=== PATIENT | female | born 2005 | race Caucasian/White ===

== ENCOUNTER 2024-02-02 00:23 | Emergency (ER) | payer MEDICAID, SELFPAY ==
[2024-02-02 00:33] VITALS: BP 122/68; PULSE 88; RESP 18; TEMP 36.7; O2SAT 95; BMI 17.8
--- NOTE | 2024-02-02 00:47 | XR_ITS ---
Examination: Knee, right , 3 views Technique: Knee AP, lateral, oblique 3 views Date and time of exam: 0218 hrs. Indications: Injury to the knee today, knee pain Findings: No fracture or dislocation No foreign body Impression: No fracture or dislocation
[2024-02-02 02:16] LABS: HCG Qualitative,Urine Negative
--- NOTE | 2024-02-02 02:31 | EDNOTE_ITS ---
<Statement entered by Jennifer De Luna MD - 02/02/24 19:17> As co-signing physician, I was present and available for consult prn. I concur with the plan and care as documented by the midlevel provider. Lower Extremity Injury RME/HPI General Chief Complaint: Extremity Injury, Upper Stated Complaint: Hit knee on metal plate/wants it checked Time Seen by Provider: 02/02/24 00:47 Arrival date/time: 02/02/24 00:23 18F with no significant PMH presents to ED with R knee pain after she banged it against something. Patient also wants test prior to XR. Limitations: no limitations Related Data Previous Rx's ?Medication ?Instructions ?Recorded ibuprofen 400 mg tablet 400 mg PO Q8H PRN pain #14 tabs 12/27/23 Allergies Allergy/AdvReac Type Severity Reaction Status Date / Time No Known Allergies Allergy Verified 12/27/23 08:37 Review of Systems Review of Systems Systems Reviewed: All systems reviewed, normal except as documented Constitutional Constitutional: Reports system reviewed and no additional complaints, except as documented, Denies fever(s) and Denies headache(s) ENT Ears, Nose, Mouth, and Throat: Denies disequilibrium and Denies headache(s) Cardiovascular Cardiovascular: Reports system reviewed and no additional complaints, except as documented, Denies chest pain and Denies dyspnea Respiratory Respiratory: Reports system reviewed and no additional complaints, except as documented, Denies cough and Denies dyspnea Gastrointestinal Gastrointestinal: Reports system reviewed and no additional complaints, except as documented, Denies abdominal pain, Denies nausea and Denies vomiting Musculoskeletal Musculoskeletal: Reports as per HPI and Reports arthralgias Neurologic Neurologic: Reports system reviewed and no additional complaints, except as documented, Denies confusion, Denies disequilibrium and Denies headache(s) Psychiatric Psychiatric: Denies confusion Past Medical History Social History SMOKING STATUS: Former smoker ED Exam General Limitations: Present no limitations General appearance: Present alert and in no apparent distress Head Head exam: Present atraumatic Eye Eye exam: Present normal appearance, PERRL and EOMI ENT ENT exam: Present normal exam, normal oropharynx and mucous membranes moist Neck Neck exam: Present normal inspection, full ROM and trachea midline Chest Chest inspection: Present normal inspection and symmetric chest wall rise Respiratory Respiratory exam: Present normal lung sounds bilaterally Cardiovascular Cardiovascular exam: Present regular rate, normal rhythm and normal heart sounds Abdominal Exam Abdominal exam: Present soft and normal bowel sounds Extremities Exam Extremities exam: Present full ROM Expanded Lower Extremity Exam Knee exam: Present full ROM (R) and tenderness Back Exam Back exam: Present normal inspection and full ROM Neurological Exam Neurological exam: Present alert, oriented X3 and CN II-XII intact Psychiatric Psychiatric exam: Present normal affect and normal mood Skin Skin exam: Present warm, dry, intact and normal color Course Quality Measures none Orders Category Date Time Status XR knee RT 3V Stat Exams 02/02/24 00:47 Taken HCG Qualitative,Urine Stat Lab 02/02/24 01:08 Completed Vital Signs Vital signs: Vital Signs Temperature 98.0 F 02/02/24 00:33 Pulse Rate 88 02/02/24 00:33 Respiratory Rate 18 02/02/24 00:33 Blood Pressure 122/68 02/02/24 00:33 Pulse Oximetry (%) 95 02/02/24 00:33 Oxygen Delivery Method Room Air 02/02/24 00:33 O2 at 95% on RA and WNLs Extremity Injury, Lower MDM Narrative MDM Narrative:: 18F with no significant PMH presents to ED with R knee pain after she banged it against something. Patient also wants test prior to XR. Physical exam reveals R knee tendernes, but normal ROM. Gait intact. Patient is afebrile, calm, and alert. XR no fx. Viscera Washer given. Patient data External records reviewed:: [facility] previous records Clinical information provided by:: patient Social determinants that could affect healthcare access:: none Patient has the following chronic illnesses:: none How is presenting disease/condition affected by chronic disease/condition?: no chronic disease Evaluation data The following diagnostics were reviewed and interpreted by me:: radiology exam(s) Lab and/or radiology exams considered but not ordered:: ordered Interpretation Summary: above Medications / Prescriptions Medications or Prescriptions considered but not ordered:: not ordered Medication administrations:: n/a Consultations Consultation(s) initiated? (list below): No Diagnosis Extremity Injury, Lower Differential Diagnosis: ankle sprain and strain, acute internal derangement of knee, puncture wound of foot, fracture of toe, ankle fracture and other (knee fx/contusion) Most likely diagnosis given after review of the tests above:: knee contusion Admission Indicated Admission indicated?: not indicated Admission Request Was there a request for admission?: No Disposition Plan Disposition Plan: Discharge Discharge Attestation Discharge Attestation: The patient and all family members were given an opportunity to ask questions and understood the discharge instructions. Discharge instructions specifically effects, indications for sooner follow up or return to the emergency department, and the expected course of current diagnosis. Patient condition: Stable Discharge Plan Plan Patient Disposition: HOME (Self Care) Disposition Comment: Stable Prescriptions/Referrals Prescriptions/Med Rec: No Action ibuprofen 400 mg tablet 400 mg PO Q8H PRN (Reason: pain) Qty: 14 0RF Problem List Clinical Impression: Contusion of knee Patient/Caregiver Discharge Instructions Education Materials: ED Contusion, Lower Extremity Additional Instructions: Please follow-up with PCP within 24-48 hours and return immediately if symptoms worsen. If problem persists, recommend outpatient PT and/or MRI follow-up. In the meantime, rest, use ice/heat, and/or compression. Print Language: Wolof Stand Alone Forms: Patient Portal Info Letter PATRICIA/BREANN Supervising Physician PATRICIA/BREANN Supervising Physician: Dr. De Luna
--- NOTE | 2024-02-02 03:10 | PRELIM_ITS ---
Radiographs of the right knee joint (3 views). February 02, 2024 0218 hours Clinical History: Hit ward e Comparison: No prior study is available for comparison. Findings:There is no evidence of fracture o r dislocation. The tibiofemoral and patellofemoral knee joints are normal in configuration and align ment. The visualized bones demonstrate normal density. The periarticular soft tissues are normal.Impr ession:No evidence of fracture or dislocation. Report Electronically Signed By: Keven Tilley 02/02/20 24 3:09:29 AM [EST]
[2024-02-02 03:14] VITALS: RESP 18
== END 2024-02-02 03:14 | disposition home or self-care (01) ==
LOC: SERX 03:37
PROVIDERS: Physician Assistant; Emergency Provider Emergency Medicine
DX: S80.01XA Contusion of right knee, initial encounter (principal); W22.8XXA Striking against or struck by other objects, initial encounter
CPT/HCPCS: 73562; 81025; 99283

== ENCOUNTER 2024-02-05 12:27 | Emergency (ER) | payer MEDICAID, SELFPAY ==
[2024-02-05 12:38] VITALS: BP 131/71; PULSE 109; RESP 23; TEMP 36.5; O2SAT 96
--- NOTE | 2024-02-05 12:40 | EKG_ITS ---
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
--- NOTE | 2024-02-05 12:40 | XR_ITS ---
Examination: PA chest single view TECHNIQUE: Upright PA chest single view Exam date and time: February 05, 2024 1315 hours INDICATIONS: Shortness breath chest pain today, history heart surgery FINDINGS: Mild enlargement left ventricle Median sternotomy wires Mild vascular congestion. No pneumonia or pulmonary edema IMPRESSION: Mild vascular congestion
--- NOTE | 2024-02-05 12:41 | PD.EDADULT ---
ED General RME/HPI General Chief complaint: Shortness of Breath/Dyspnea Stated complaint: SOB, CP, DIZZINES, HX OF HEART PROBLEMS Time Seen by Provider: 02/05/24 12:40 Arrival date/time: 02/05/24 12:27 CC: Chest pain shortness of breath HPI ongoing for the past 24 hours after smoking weed , and I think something else was in it . 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 When directed and a focused conversation the patient's shortness of breath ceases and she speaks in full sentences with a normal respiratory rate however the minute the conversation stops she becomes tachypneic, patient has remained tachycardic throughout the interview. Related Data Previous Rx's ?Medication ?Instructions ?Recorded ibuprofen 400 mg tablet 400 mg PO Q8H PRN pain #14 tabs 12/27/23 Allergies Allergy/AdvReac Type Severity Reaction Status Date / Time latex Allergy Verified 02/05/24 12:31 Review of Systems Review of Systems Narrative Review of Systems: GEN: No fever, no chills, no weight loss EYES: No discharge, no visual changes, no pain HEENT: No ear pain, no congestion, no sore throat PULM: + shortness of breath, no cough, no congestion CV: + chest pain, no dyspnea on exertion, no palpitations GI: No nausea, no vomiting, no diarrhea, no pain, no constipation : No frequency, no urgency, no dysuria MUSC/SKEL: No joint pain, no back pain SKIN: No rash PSYCH: No hallucinations, no depression HEME/LYMPH: No easy bleeding or bruising tendencies NEURO: No weakness, no headache Past Medical History Social History SMOKING STATUS: Former smoker ED Exam Narrative Physical exam: [General: Thin but not emaciated, anxious but not in any acute distress Head normocephalic HEENT: Within acceptable limits Neck is supple nontender Chest equal chest rise nontender to palpation Respiratory: Clear to auscultation no wheezes crackles or rubs CV: Rate rhythm is regular, tachycardic, no murmurs rubs or clicks Abdomen is soft nontender no masses positive bowel sounds all 4 quadrants Back: No CVA tenderness no spinous process tenderness from cervical spine thoracic and lumbar spine Skin: Intact no petechiae rash induration ulceration or crepitus Extremities: Moving all extremity against resistance cap refill less than 2 seconds neurosensory intact Neuro: Awake alert oriented x3 Glascow coma 15 no focal deficits] Course Quality Measures none Orders Category Date Time Status EKG (ED ONLY) *Do not use* NOW Care 02/05/24 12:41 Completed EKG (ED Only) Stat Exams 02/05/24 12:40 Draft XR chest 1V Stat Exams 02/05/24 12:40 Completed Drug Screen,Urine Stat Lab 02/05/24 13:57 Completed HCG Qualitative,Urine Stat Lab 02/05/24 13:57 Completed Troponin I Stat Lab 02/05/24 13:06 Completed Urinalysis Stat Lab 02/05/24 13:57 Completed Vital Signs Vital signs: Vital Signs Temperature 97.7 F 02/05/24 12:38 Pulse Rate 109 H 02/05/24 12:38 Respiratory Rate 23 H 02/05/24 12:38 Blood Pressure 131/71 H 02/05/24 12:38 Pulse Oximetry (%) 96 02/05/24 12:38 Oxygen Delivery Method Room Air 02/05/24 12:38 [facility] Patient data External records reviewed:: [facility] previous records Clinical information provided by:: patient Social determinants that could affect healthcare access:: none Patient has the following chronic illnesses:: Cardiac hyperplasia How is presenting disease/condition affected by chronic disease/condition?: uneffected by Evaluation data The following diagnostics were reviewed and interpreted by me:: lab results, radiology exam(s) and EKG tracing(s) Lab and/or radiology exams considered but not ordered:: EKG performed at 1256 shows a ventricular rate of 107 LA interval 124 QRS of 9 7 QTc of 420 sinus tachycardia right ventricular hypertrophy nonspecific ST segment changes. Troponin is negative Chest x-ray entered by me read by radiology as negative Urine is positive for methamphetamines and THC. Interpretation Summary: Is most likely tachycardia driven by anxiety and methamphetamines Medications Medications considered but not ordered:: None Medication administrations:: None Consultations Consultation(s) initiated? (list below): No Diagnosis Differential Diagnosis ED Complaint MDM: Methamphetamine abuse pneumonia Most likely diagnosis given after review of the tests above:: Anxiety and methamphetamine use tachycardia Admission Indicated Admission indicated?: not indicated Explain why admission is indicated or not indicated:: Stable for outpatient follow-up Admission Request Was there a request for admission?: No Disposition Plan Disposition Plan: Discharge Discharge Attestation Discharge Attestation: The patient and all family members were given an opportunity to ask questions and understood the discharge instructions. Discharge instructions specifically effects, indications for sooner follow up or return to the emergency department, and the expected course of current diagnosis. Patient condition: Stable Medical Decision Making Differential Diagnosis Differential Diagnosis: Methamphetamine abuse pneumonia Lab Data Labs: Lab Results 02/05/24 02/05/24 Range/Units 13:06 13:57 Troponin I < 0.020 (0.0-0.045) ng/mL Ur Collection Type Clean Catch Urine Color Yellow (Lt Yel-Yel) Urine Clarity Turbid A (Clear/Hazy) Urine pH 6.0 (5.0-7.0) Ur Specific [place] 1.032 (1.001-1.035) Urine Protein 1+ A (Neg - Trace) Urine Glucose (UA) Negative (Negative) Urine Ketones Negative (Negative) Urine Blood Trace (Negative) Urine Nitrite Negative (Negative) Urine Bilirubin Negative (Negative) Urine Urobilinogen (Auto) 3.0 (0.0-1.0) mg/dL Ur Leukocyte Esterase Positive (Negative) Urine RBC 5 H (0-3) /hpf Urine WBC 19 H (0-5) /hpf Ur Squamous Epith Cells 98 H (0-5) /hpf Ur Transition Epith Cell 1 (0-5) /hpf Urine Bacteria Rare (None) Urine HCG, Qual Negative Urine Opiates Screen Negative (Negative) Urine Fentanyl Screen Negative (Negative) Ur Barbiturates Screen Negative (Negative) U Amphetamin/Meth Scrn Positive A (Negative) U Benzodiazepines Scrn Negative (Negative) U Cocaine Metab Screen Negative (Negative) U Marijuana (THC) Screen Positive A (Negative) Discharge Plan Plan Patient Disposition: HOME (Self Care) Patient condition on transfer: Stable Prescriptions/Referrals Prescriptions/Med Rec: No Action ibuprofen 400 mg tablet 400 mg PO Q8H PRN (Reason: pain) Qty: 14 0RF Referrals: No Primary/Family,Physician [Primary Care Provider] - In 1 week Lan Park MD [Physician] - In 1 week Problem List Clinical Impression: Anxiety, Methamphetamine abuse, Chest pain Patient/Caregiver Discharge Instructions Other Activity Instructions:: Stop using methamphetamines follow-up with a primary care provider Education Materials: ED Drug Abuse, ED Chest Pain, Uncertain Cause Print Language: Kinyarwanda Stand Alone Forms: [employer] Award Info., Patient Portal Info Letter, Work/School Release PA/LAUNDRY LABORER Supervising Physician PA/LAUNDRY LABORER Supervising Physician: Gildardo Molina ENP
[2024-02-05 13:34] LABS: Troponin I < 0.020 ng/mL (0.0-0.045)
[2024-02-05 14:16] LABS: Collection Type, Urine Clean Catch
[2024-02-05 14:39] LABS: HCG Qualitative,Urine Negative
[2024-02-05 14:44] LABS: Bacteria,Urine Rare; Bilirubin,Urine Negative (Negative); Blood,Urine Trace (Negative); Clarity,Urine Turbid (Clear/Hazy); Color,Urine Yellow (Lt Yel-Yel); Glucose, Urine Negative (Negative); Ketones,Urine Negative (Negative); Leukocyte Esterase,Urine Positive (Negative); Nitrite,Urine Negative (Negative); Protein,Urine 1+ (Neg - Trace); RBC,Urine 5 /hpf (0-3); Specific Gravity,Urine 1.032 (1.001-1.035); Squamous Epithelial Cell,Urine 98 /hpf (0-5); Transitional Epi Cells,Urine 1 /hpf (0-5); WBC,Urine 19 /hpf (0-5)
[2024-02-05 14:54] LABS: Amphetamine/Methamp Scrn,U Positive (Negative); Barbiturate Screen,Urine Negative (Negative); Benzodiazepines Screen,Urine Negative (Negative); Benzoylecgonine Screen, Ur Negative (Negative); Fentanyl Screen,Urine Negative (Negative); Opiate Screen,Urine Negative (Negative); THC Screen,Urine Positive (Negative)
== END 2024-02-05 15:21 | disposition home or self-care (01) ==
PROVIDERS: Registered Nurse General Practice; Emergency Provider Emergency Medicine
DX: F41.9 Anxiety disorder, unspecified (principal); F15.10 Other stimulant abuse, uncomplicated; R07.9 Chest pain, unspecified; R00.0 Tachycardia, unspecified
CPT/HCPCS: 36415; 71045; 80307; 81001; 81025; 84484; 93005; 99283

== ENCOUNTER 2024-02-16 17:23 | Emergency (ER) | payer MEDICAID, SELFPAY ==
[2024-02-16 17:58] VITALS: BP 125/74; PULSE 80; RESP 17; TEMP 36.7; O2SAT 97
--- NOTE | 2024-02-16 18:17 | XR_ITS ---
Examination: Hand, left 3 views Technique: Hand AP, oblique, lateral 3 views Date and time of exam: February 16, 2024 1826 hrs. Indications: Punching injury to the hand today with hand pain Findings: No acute fracture No dislocation No foreign body Impression: No acute fracture
--- NOTE | 2024-02-16 18:40 | EDNOTE_ITS ---
Upper Extremity Injury RME/HPI General Chief Complaint: Hand/Wrist Problems Stated Complaint: L HAND INJURY Time Seen by Provider: 02/16/24 18:16 Arrival date/time: 02/16/24 17:23 18F with history of psych/drug use presents to ED with L hand pain after she punched a tree. Limitations: no limitations Related Data Previous Rx's ?Medication ?Instructions ?Recorded ibuprofen 400 mg tablet 400 mg PO Q8H PRN pain #14 tabs 12/27/23 Allergies Allergy/AdvReac Type Severity Reaction Status Date / Time latex Allergy Verified 02/16/24 17:26 Review of Systems Review of Systems Systems Reviewed: All systems reviewed, normal except as documented Constitutional Constitutional: Reports system reviewed and no additional complaints, except as documented, Denies fever(s) and Denies headache(s) ENT Ears, Nose, Mouth, and Throat: Denies disequilibrium and Denies headache(s) Cardiovascular Cardiovascular: Reports system reviewed and no additional complaints, except as documented, Denies chest pain and Denies dyspnea Respiratory Respiratory: Reports system reviewed and no additional complaints, except as documented, Denies cough and Denies dyspnea Gastrointestinal Gastrointestinal: Reports system reviewed and no additional complaints, except as documented, Denies abdominal pain, Denies nausea and Denies vomiting Musculoskeletal Musculoskeletal: Reports as per HPI and Reports arthralgias Neurologic Neurologic: Reports system reviewed and no additional complaints, except as documented, Denies confusion, Denies disequilibrium and Denies headache(s) Psychiatric Psychiatric: Denies confusion Past Medical History Social History SMOKING STATUS: Current some day smoker ED Exam General Limitations: Present no limitations General appearance: Present alert and in no apparent distress Head Head exam: Present atraumatic Eye Eye exam: Present normal appearance, PERRL and EOMI ENT ENT exam: Present normal exam, normal oropharynx and mucous membranes moist Neck Neck exam: Present normal inspection, full ROM and trachea midline Chest Chest inspection: Present normal inspection and symmetric chest wall rise Respiratory Respiratory exam: Present normal lung sounds bilaterally Cardiovascular Cardiovascular exam: Present regular rate, normal rhythm and normal heart sounds Abdominal Exam Abdominal exam: Present soft and normal bowel sounds Extremities Exam Extremities exam: Present full ROM Expanded Upper Extremity Exam Hand exam: Present full ROM (L), tenderness, swelling and ecchymosis Back Exam Back exam: Present normal inspection and full ROM Neurological Exam Neurological exam: Present alert, oriented X3 and CN II-XII intact Psychiatric Psychiatric exam: Present normal affect and normal mood Skin Skin exam: Present warm, dry, intact and normal color Course Quality Measures none Orders Category Date Time Status yany wrap [Splint / Immobilizer] STAT Care 02/16/24 19:34 Active XR hand comp LT min 3V Stat Exams 02/16/24 18:17 Completed Vital Signs Vital signs: Vital Signs Temperature 98.0 F 02/16/24 17:58 Pulse Rate 80 02/16/24 17:58 Respiratory Rate 17 02/16/24 17:58 Blood Pressure 125/74 02/16/24 17:58 Pulse Oximetry (%) 97 02/16/24 17:58 Oxygen Delivery Method Room Air 02/16/24 17:58 O2 at 97% on RA and WNLs Extremity Injury MDM Narrative MDM Narrative:: 18F with history of psych/drug use presents to ED with L hand pain after she punched a tree. Physical exam reveals L hand tenderness, swelling, and bruising, but normal ROM. Cap refill normal. Patient is afebrile, calm, and alert. XR no fx. Given YANY and drug abuse counselor. Patient data External records reviewed:: [facility] previous records Clinical information provided by:: patient Social determinants that could affect healthcare access:: mental health Patient has the following chronic illnesses:: psych/drug How is presenting disease/condition affected by chronic disease/condition?: exacerbated by Evaluation data The following diagnostics were reviewed and interpreted by me:: radiology exam(s) Lab and/or radiology exams considered but not ordered:: ordered Interpretation Summary: above Medications / Prescriptions Medications or Prescriptions considered but not ordered:: not ordered Medication administrations:: n/a Consultations Consultation(s) initiated? (list below): No Diagnosis Upper Extremity Injury Differential Diagnosis: sprain and strain of wrist, fracture of wrist, finger sprain, dislocation of finger, Colles' fracture, fracture of hand, dislocation of shoulder, fracture of humerus, fracture of clavicle and other (hand contusion) Most likely diagnosis given after review of the tests above:: hand contusion Admission Indicated Admission indicated?: not indicated Admission Request Was there a request for admission?: No Disposition Plan Disposition Plan: Discharge Discharge Attestation Discharge Attestation: The patient and all family members were given an opportunity to ask questions and understood the discharge instructions. Discharge instructions specifically effects, indications for sooner follow up or return to the emergency department, and the expected course of current diagnosis. Patient condition: Stable Discharge Plan Plan Patient Disposition: HOME (Self Care) Disposition Comment: Stable Prescriptions/Referrals Prescriptions/Med Rec: No Action ibuprofen 400 mg tablet 400 mg PO Q8H PRN (Reason: pain) Qty: 14 0RF Referrals: No Primary/Family,Physician [Primary Care Provider] - In 1 week Problem List Clinical Impression: Contusion of hand Patient/Caregiver Discharge Instructions Education Materials: ED Hand Contusion Additional Instructions: Please follow-up with PCP within 24-48 hours and return immediately if symptoms worsen. If problem persists, recommend outpatient PT and/or MRI follow-up. In the meantime, rest, use ice/heat, and/or compression. Print Language: Irish Stand Alone Forms: Patient Portal Info Letter PATRICIA/BREANN Supervising Physician PATRICIA/BREANN Supervising Physician: Dr. Hendrix
[2024-02-16 19:38] VITALS: RESP 18
== END 2024-02-16 19:39 | disposition home or self-care (01) ==
PROVIDERS: Emergency Provider Emergency Medicine
DX: S60.222A Contusion of left hand, initial encounter (principal); W22.09XA Striking against other stationary object, initial encounter
CPT/HCPCS: 73130; 99283

== ENCOUNTER 2024-03-16 03:53 | Emergency (ER) | payer SELFPAY ==
[2024-03-16 03:55] VITALS: BP 120/74; PULSE 87; RESP 17; TEMP 36.6; O2SAT 97
[2024-03-16 04:06] VITALS: BMI 17.2
[2024-03-16 04:07] VITALS: PULSE 92; RESP 16; O2SAT 98
--- NOTE | 2024-03-16 04:21 | EKG_ITS ---
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: : 2005 Requested By: ED Temporary Provider Order Number: [id number] Reading MD: ED Temporary Provider Measurements Intervals [place] Rate: 78 P: [place]: QRS: 100 QRSD: 104 T: -2 QT: 412 QTc: 470 Interpretive Statements SUPRAVENTRICULAR RHYTHM POSSIBLE RIGHT VENTRICULAR HYPERTROPHY [SOME/ALL OF: PROMINENT R IN V1, LATE TRANSITION, RAD, CONRAD, SSS] NONSPECIFIC ST & T-WAVE ABNORMALITY Compared to ECG 02/05/2024 12:56:29 Supraventricular rhythm now present Sinus tachycardia no longer present Possible ischemia no longer present T-wave abnormality still present /store/S0/[id number]
--- NOTE | 2024-03-16 04:32 | EDRME_ITS ---
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 Patient is also asking for a test.
--- NOTE | 2024-03-16 04:35 | XR_ITS ---
Examination: AP chest single view Technique one AP portable upright chest single view Exam date and time: March 16, 2024 at 0447 hours INDICATIONS: Onset chest pain today FINDINGS: Mild prominence left ventricle Median sternotomy wires No pneumonia or pulmonary edema. IMPRESSION: No pneumonia or pulmonary edema
[2024-03-16 05:56] LABS: Basophils % (Auto) 0 % (0-2.5); Eosinophils # (Auto) 0.1 Thou/mm3 (0.0-0.5); Eosinophils % (Auto) 1 % (0-10); Hematocrit 41.3 % (36.0-46.0); Hemoglobin 13.8 g/dL (12.0-16.0); Immature Granulocytes % (Auto) 0 % (0-0); Immature Granulocytes Auto 0.02 Thou/mm3 (0.00-0.00); Lymphocytes # (Auto) 1.5 Thou/mm3 (1.0-5.0); Lymphocytes % (Auto) 22 % (10-50); Mean Corpuscular HGB Conc 33.4 g/dl (31.0-37.0); Mean Corpuscular Hemoglobin 30.4 pg (25.0-35.0); Mean Corpuscular Volume 91 fL (80-100); Monocytes # (Auto) 0.7 Thou/mm3 (0.0-0.8); Monocytes % (Auto) 10 % (0-12); Neutrophils # (Auto) 4.4 Thou/mm3 (1.8-7.7); Neutrophils % (Auto) 66 % (37-80); Nucleated Red Blood Cell % 0 /100 WBC (0); Platelet Count 187 Thou/mm3 (140-440); RDW Standard Deviation 43.8 fL (36.4-46.3); Red Blood Count 4.54 Miln/mm3 (4.00-5.20); White Blood Count 6.7 Thou/mm3 (4.5-11.0)
[2024-03-16 05:57] LABS: HCG Qualitative,Urine Negative
[2024-03-16 06:30] VITALS: BP 121/68; PULSE 80; RESP 17; TEMP 36.6; O2SAT 97
[2024-03-16 06:36] LABS: Alanine Aminotransferase 19 U/L (10-49); Albumin, Serum 5.3 gm/dL (3.5-5.0); Albumin/Globulin Ratio 1.9 (1.2-2.2); Alkaline Phosphatase 74 U/L (46-116); Anion Gap 8 (7-16); Aspartate Amino Transferase 23 U/L (0-34); BUN/Creatinine Ratio 21 Ratio (12-20); Blood Urea Nitrogen 17 mg/dL (9-23); Chloride 105 mMol/L (98-107); Creatinine (Component) 0.8 mg/dL (0.6-1.3); Globulin 2.8 gm/dL (2.3-3.5); Glucose 82 mg/dL (74-106); Osmolality,Calculated 278 (275-295); Potassium 3.4 mMol/L (3.4-5.1); Sodium 139 mMol/L (136-145); Total Protein 8.1 gm/dL (5.7-8.2); Troponin I < 0.020 ng/mL (0.0-0.045); eGFR > 60 See Note
--- NOTE | 2024-03-16 07:15 | EDNOTE_ITS ---
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 Patient is also asking for a test. At the previous history is placed by the initial RME note. 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 She is currently searching for a retail cosmetics sales beauty advisor. Today she has no shortness of breath she complains of a tender chest wall when you push on it and recalls bumping her chest on the sink several days ago which may be the cause of her soreness. She is concerned about being possibly she does not have any nausea vomiting. She has no shortness of breath. She has no fever cough runny nose or blood in the stool. She had no other complaints Related Data Previous Rx's ?Medication ?Instructions ?Recorded ibuprofen 400 mg tablet 400 mg PO Q8H PRN pain #14 tabs 12/27/23 Allergies Allergy/AdvReac Type Severity Reaction Status Date / Time latex Allergy Verified 02/16/24 17:26 Review of Systems Review of Systems Narrative Review of Systems: Review of Systems: Constitutional: DENIES: Fevers,; Eyes: DENIES: Loss of vision, Head/Ear/Nose: DENIES: Loss of hearing. Throat: Denies dysphagia. Cardiovascular: See HPI. Respiratory: DENIES: Shortness of breath, Gastrointestinal: DENIES: Rectal bleeding or melena. Genitourinary: DENIES: Dysuria (painful or difficult urination),; Musculoskeletal: DENIES: Arthralgia (pain in a joint),; Skin: DENIES: Rash,; Neurological: DENIES: loss of function or movement,; Psychiatric: DENIES: recent major life stressor, emotional problem, illicit drug use or abuse,; Endocrinology: DENIES: Weight change,; Hematologic/Lymphatic: DENIES: Abnormal bruising. Allergic/Immunologic: DENIES: Urticaria (hives), ED Exam Narrative Physical exam: Physical Exam: General: The vital signs were reviewed. The patient is non-toxic, in no apparent distress and appears healthy with a patent airway, no respiratory distress and has no apparent circulatory problems. Head & Scalp: Normocephalic, atraumatic. Face: Appears normal and is without lesions, deformity. Ears: Left external pinna appears normal. Right external pinna appears normal. Eyes: The sclera is anicteric. No obvious photophobia. The Left and Right Orbit/Lid/Conjunctiva appears normal without swelling, discoloration or injection. Nose: The nose is without deformity, discharge or tenderness; Throat: Appears normal. The mucous membranes are pink and moist without exudates, redness or mass seen. The tongue appears normal. Neck: The neck is supple and no apparent mass or adenopathy. Chest: Old well-healed sternal scars, very tender anterior chest wall Left sternal at about T3 area is very focal. The adjacent right parasternal area is nontender. There is no ecchymosis seen. Palpating the 1 spot does reproduce the pain that brought her here. The chest wall is normal in size and symmetry and has no chest wall tenderness or crepitus. The patient displays normal ventilator effort without retractions, accessory muscle use and has adequate air movement bilaterally with no wheezes and no rales. Cardiovascular: Regular rate and rhythm; No murmurs, rubs, or gallops; Gastrointestinal: The abdomen appears normal. No obvious hernias or mass. The abdomen is soft and benign, non-distended, with no pain, no guarding and no rebound tenderness. Bowel sounds are present and normal sounding. No CVA tenderness. Genitourinary: Back/Spine: Nontender Extremities/Musculoskeletal/lymphatic: The bilateral upper and lower extremities are warm. There is no evidence of arterial insufficiency. There is no evidence of venous insufficiency/edema. The patient spontaneously moves bilateral upper and lower extremities with no pain and no limitation of movement. There is no apparent, injury or trauma. Skin: The skin is warm, dry and intact. No rashes. No petechia. No purpura. No abnormal bruising. The color is appropriate with no cyanosis. Mental status/Psychiatric: Mental status is appropriate for age. The patient has no apparent delusions, visual hallucinations, no apparent audible hallucinations. The patient has no apparent suicidal thoughts/ideation and no apparent homicidal thoughts/ideation. Neurological: The patient is awake, alert, interactive, cordial, cooperative and is oriented to name and situation. The patient follows commands and answers historical question with no impairment. There is no visual disturbance apparent. The pupils are equal and reactive bilaterally with normal eye movements and no diplopia The bilateral upper and lower extremities have normal strength, normal range of motion and normal functioning. The gait, station and balance appear to be baseline with no acute change Course Quality Measures none Orders Category Date Time Status EKG (ED ONLY) *Do not use* NOW Care 03/16/24 04:21 Completed IV [Insert IV] STAT Care 03/16/24 04:35 Active CXRP [XR chest 1V portable] Stat Exams 03/16/24 04:35 Taken EKG (ED Only) Stat Exams 03/16/24 04:21 Draft CBC Stat Lab 03/16/24 05:24 Completed CMP [Comprehensive Metabolic Panel] Stat Lab 03/16/24 05:24 Completed HCG Qualitative,Urine Stat Lab 03/16/24 05:04 Completed Troponin I Stat Lab 03/16/24 05:24 Completed Vital Signs Vital signs: Vital Signs Temperature 97.9 F 03/16/24 03:55 Pulse Rate 87 03/16/24 03:55 Respiratory Rate 17 03/16/24 03:55 Blood Pressure 120/74 03/16/24 03:55 Pulse Oximetry (%) 97 03/16/24 03:55 Oxygen Delivery Method Room Air 03/16/24 03:55 Chest Pain Patient data External records reviewed:: None Clinical information provided by:: patient Social determinants that could affect healthcare access:: substance use (Marijuana no recent meth though) Patient has the following chronic illnesses:: Hypoplastic How is presenting disease/condition affected by chronic disease/condition?: uneffected by Evaluation data The following diagnostics were reviewed and interpreted by me:: lab results (Lab results showed normal CBC and CHEM panel.), radiology exam(s) (Chest x-ray read by myself reveals lung tolliver are clear there is no infiltrate or effusion bony structures and soft tissues are within normal limits. Heart silhouette is within normal limits) and EKG tracing(s) (Twelve-lead EKG reveals uncertain origin of QRS complex is there appears to be irregular rhythm narrow complex QRS no clear P wave is seen there is clearly a rightward axis rate 78 no STEMI) Lab and/or radiology exams considered but not ordered:: None Interpretation Summary: See above Medications / Prescriptions Medications or Prescriptions considered but not ordered:: None Medication administrations:: None Consultations Consultation(s) initiated? (list below): No Consultation #1 (Physician, Specialty, Details): None Diagnosis Most likely diagnosis given after review of the tests above:: Chest wall pain probably secondary to contusion Admission Indicated Admission indicated?: not indicated Explain why admission is indicated or not indicated:: No Admission Request Was there a request for admission?: No Disposition Plan Disposition Plan: Discharge Discharge Attestation Discharge Attestation: The patient and all family members were given an opportunity to ask questions and understood the discharge instructions. Discharge instructions specifically effects, indications for sooner follow up or return to the emergency department, and the expected course of current diagnosis. Patient condition: Stable Discharge Plan Plan Patient Disposition: HOME (Self Care) Prescriptions/Referrals Prescriptions/Med Rec: No Action ibuprofen 400 mg tablet 400 mg PO Q8H PRN (Reason: pain) Qty: 14 0RF Referrals: No Primary/Family,Physician [Primary Care Provider] - In 1 week Problem List Clinical Impression: Chest pain, Acute chest wall pain, Hypoplastic LV (left ventricle) Patient/Caregiver Discharge Instructions Education Materials: ED Pain, Acute, Uncertain Cause Additional Instructions: Today the source of your chest pain or discomfort appears to be from the chest wall as touching or palpating the area appears to reproduce your pain. As we discussed please follow-up with your doctor to get referred to a local retail cosmetics sales beauty advisor that manages congenital heart disease. If you are getting worse shortness of breath fever or sick in any other way please return for reevaluation. Your labs EKG and chest x-ray revealed no acute problem today. Print Language: Azeri Stand Alone Forms: Patient Portal Info Letter
[2024-03-16 08:13] VITALS: BP 121/68; PULSE 73; RESP 16; O2SAT 96
--- NOTE | 2024-03-16 08:18 | PC.NURSE ---
Patient ambulated about 100ft with no complaints of sob or chest pain. States she feels fine
== END 2024-03-16 09:29 | disposition home or self-care (01) ==
PROVIDERS: Emergency Medicine; Emergency Provider Emergency Medicine
DX: R07.89 Other chest pain (principal); Q24.8 Other specified congenital malformations of heart
CPT/HCPCS: 36415; 71045; 80053; 81025; 84484; 85025; 93005; 99283

== ENCOUNTER 2024-03-19 01:15 | Emergency (ER) | payer SELFPAY | END 2024-03-19 07:00 | disposition home or self-care (01) | PROVIDERS: Emergency Provider Emergency Medicine; Referring Provider Emergency Medicine | DX: R07.9 Chest pain, unspecified (principal) | CPT/HCPCS: 99283 ==

== ENCOUNTER 2024-04-01 12:23 | Emergency (ER) | payer SELFPAY ==
[2024-04-01 12:44] VITALS: BP 126/75; PULSE 100; RESP 16; TEMP 36.6; O2SAT 96
--- NOTE | 2024-04-01 12:54 | XR_ITS ---
Examination: AP chest single view TECHNIQUE: AP portable upright chest single view Exam date and time: April 01, 2024 1309 hours INDICATIONS: Shortness of breath today. FINDINGS: Minimal prominence of ventricle Median sternotomy wires. No pneumonia or pulmonary edema The osseous structures are intact IMPRESSION: No pneumonia or pulmonary edema
--- NOTE | 2024-04-01 12:55 | EDNOTE_ITS ---
ED Chest Pain RME/HPI General Chief Complaint: Extremity Problem,Nontraumatic Stated Complaint: SOB Time Seen by Provider: 04/01/24 12:51 Arrival date/time: 04/01/24 12:23 18 year old female present to emergency room via EMS with c/o of shortness of breath and chest discomfort today. patient report using meth recently. 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 Pt is on warfarin but has not taken the medication for 3 weeks. last time taken warfarin was 4 months ago and currently taking baby aspirin. pt does not have PCP. LOCATION: chest SEVERITY: Symptoms are described as being severe with limitations on activities of daily living CONTEXT: The patient is unable to identify any inciting events. DURATION/TIMING: The symptoms started approximately 1 day ASSOCIATED SYMPTOMS: The patient is unable to identify any other associated symptoms. MODIFYING FACTORS: The patient is unable to identify any alleviating or aggravating symptoms. PERTINENT ROS: no fevers, no cough, no pleuritic pain, no ripping or tearing sensations, denies any lower extremity edema and no unilateral swelling, no nausea,vomiting, diarrhea, no dizziness/headache no rash no loc/syncope episode no abd/back pain no dsyuria,urgency,frequency REVIEW OF SYSTEMS: See History of Present Illness - with the exception of those mentioned in the history of present illness, all other systems reviewed and reported as negative GENERAL: In general the patient is awake, interactive, in an emergency department gurney. HEAD/EYES/EARS/NOSE/THROAT: normo-cephalic, atraumatic, mucus membranes are moist, anicteric, palpebral conjunctiva is pink, trachea is midline. CARDIOVASCULAR: regular rate and regular rhythm, no murmurs, heart sounds are not distant, strong pulses in all four extremities that are equal and symmetric bilateral upper and lower extremities, normal capillary refill. CHEST/PULMONARY: normal chest rise and fall, good air movement, clear to auscultation bilaterally, normal inspiratory to expiratory ratios without evidence of respiratory distress. NECK: No midline/Paraspinal tenderness, no step off ROM/Strenght intact No Kernig and bruzinski sign. No trauma ABDOMEN: soft, not tender, no masses appreciated BACK: normal range of motion without pain. NEUROLOGICAL: cranio-facial features are symmetric, moves all four extremities equally without obvious limitations or weakness. EXTREMITY: no tenderness to palpation over the long bones or large joints of the bilateral upper and lower extremities, no joint swelling, no joint erythema, no signs of trauma, no unilateral leg swelling and no peripheral edema. SKIN: warm, dry, well-perfused, no jaundice, no rash, no telangiectasias or petechia. PSYCH: calm, cooperative, no evidence of psychosis or agitation Related Data Previous Rx's ?Medication ?Instructions ?Recorded ibuprofen 400 mg tablet 400 mg PO Q8H PRN pain #14 t abs 12/27/23 Allergies Allergy/AdvReac Type Severity Reaction Status Date / Time latex Allergy Verified 02/16/24 17:26 Course Quality Measures none Orders Category Date Time Status EKG (ED ONLY) *Do not use* NOW Care 04/01/24 12:54 Completed EKG (ED Only) Stat Exams 04/01/24 12:54 Ordered XR chest 1V portable Stat Exams 04/01/24 12:54 Completed BNP [B-Type Natriuretic Peptide] Stat Lab 04/01/24 13:05 Completed CBC Stat Lab 04/01/24 13:05 Completed CMP [Comprehensive Metabolic Panel] Stat Lab 04/01/24 13:05 Completed Drug Screen,Urine Stat Lab 04/01/24 12:54 Ordered HCG,Qualitative Serum Stat Lab 04/01/24 13:05 Completed INR [Prothrombin Time with INR] Stat Lab 04/01/24 13:05 Completed Lipase Stat Lab 04/01/24 13:05 Completed Mag [Magnesium] Stat Lab 04/01/24 13:05 Completed PTT [Partial Thromboplastin Time] Stat Lab 04/01/24 13:05 Completed Troponin I Stat Lab 04/01/24 13:05 Completed Vital Signs Vital signs: Vital Signs Temperature 97.8 F 04/01/24 12:44 Pulse Rate 100 04/01/24 12:44 Respiratory Rate 16 04/01/24 12:44 Blood Pressure 126/75 04/01/24 12:44 Pulse Oximetry (%) 96 04/01/24 12:44 Oxygen Delivery Method Room Air 04/01/24 12:44 Procedures -ED EKG Interpretation #1: Date of EK04/01/24 Rate: 99 Interpretation: Reviewed by me EKG Impression: Normal sinus rhythm, No acute ST-T changes, No ectopy and No ischemic changes Chest Pain Patient data External records reviewed:: [facility] previous records, EMS form and None Clinical information provided by:: patient and EMS Social determinants that could affect healthcare access:: substance use (meth use ) Patient has the following chronic illnesses:: meth use How is presenting disease/condition affected by chronic disease/condition?: exacerbated by Evaluation data The following diagnostics were reviewed and interpreted by me:: lab results, radiology exam(s) and EKG tracing(s) Lab and/or radiology exams considered but not ordered:: none Interpretation Summary: cbc cmp trop cxr Medications / Prescriptions Medications or Prescriptions considered but not ordered:: n/a Medication administrations:: n/a Consultations Consultation(s) initiated? (list below): No Diagnosis Chest Pain Differential Diagnosis: pneumothorax, stable angina, atypical chest pain, st elevation myocardial infarction, costochondritis, chest pain and other (pna, anxiety ) Most likely diagnosis given after review of the tests above:: chest pain, drug screen Admission Indicated Admission indicated?: not indicated Admission Request Was there a request for admission?: No Disposition Plan Disposition Plan: Discharge Discharge Attestation Discharge Attestation: The patient and all family members were given an opportunity to ask questions and understood the discharge instructions. Discharge instructions specifically effects, indications for sooner follow up or return to the emergency department, and the expected course of current diagnosis. Patient condition: Stable Discharge Plan Plan Patient Disposition: HOME (Self Care) Health Concerns: Follow with PMD as directed Return to ED if sx worsen Prescriptions/Referrals Prescriptions/Med Rec: No Action ibuprofen 400 mg tablet 400 mg PO Q8H PRN (Reason: pain) Qty: 14 0RF Referrals: Lan Park MD [Physician] - In 1 week No Primary/Family,Physician [Primary Care Provider] - In 1 week Problem List Clinical Impression: Drug abuse, Chest pain Patient/Caregiver Discharge Instructions Education Materials: ED Drug Abuse Print Language: Telugu Stand Alone Forms: [employer] Info., Patient Portal Info Letter
[2024-04-01 12:59] VITALS: PULSE 107; RESP 20; O2SAT 98; BMI 17.6
[2024-04-01 13:12] VITALS: BP 132/62; PULSE 101; RESP 23; TEMP 36.4; O2SAT 95
[2024-04-01 13:22] LABS: Hematocrit 46.1 % (36.0-46.0); Hemoglobin 15.8 g/dL (12.0-16.0); Mean Corpuscular HGB Conc 34.3 g/dl (31.0-37.0); Mean Corpuscular Hemoglobin 30.5 pg (25.0-35.0); Mean Corpuscular Volume 89 fL (80-100); Platelet Count 219 Thou/mm3 (140-440); RDW Standard Deviation 43.5 fL (36.4-46.3); Red Blood Count 5.18 Miln/mm3 (4.00-5.20); White Blood Count 10.2 Thou/mm3 (4.5-11.0)
[2024-04-01 13:23] LABS: Basophils % (Auto) 0 % (0-2.5); Eosinophils # (Auto) 0.1 Thou/mm3 (0.0-0.5); Eosinophils % (Auto) 1 % (0-10); Immature Granulocytes % (Auto) 0 % (0-0); Immature Granulocytes Auto 0.02 Thou/mm3 (0.00-0.00); Lymphocytes # (Auto) 1.8 Thou/mm3 (1.0-5.0); Lymphocytes % (Auto) 18 % (10-50); Monocytes # (Auto) 0.8 Thou/mm3 (0.0-0.8); Monocytes % (Auto) 8 % (0-12); Neutrophils # (Auto) 7.5 Thou/mm3 (1.8-7.7); Neutrophils % (Auto) 73 % (37-80); Nucleated Red Blood Cell % 0 /100 WBC (0)
[2024-04-01 13:34] LABS: B-Type Natriuretic Peptide 41 pg/mL (0-100)
[2024-04-01 13:37] LABS: Alanine Aminotransferase 17 U/L (10-49); Albumin/Globulin Ratio 1.6 (1.2-2.2); Alkaline Phosphatase 85 U/L (46-116); Anion Gap 8 (7-16); Aspartate Amino Transferase 24 U/L (0-34); BUN/Creatinine Ratio 18 Ratio (12-20); Bilirubin,Total 1.7 mg/dL (0.3-1.2); Blood Urea Nitrogen 18 mg/dL (9-23); Calcium 10.1 mg/dL (8.3-10.6); Calcium (Corrected) 10.1 mg/dL (8.5-10.1); Carbon Dioxide 19.4 mMol/L (20.0-31.0); Chloride 107 mMol/L (98-107); Estimated Creatinine Clearance 64.8 mL/min (>60); Globulin 3.1 gm/dL (2.3-3.5); Glucose 82 mg/dL (74-106); Lipase 34 U/L (12-53); Magnesium 2.1 mg/dL (1.6-2.6); Osmolality,Calculated 269 (275-295); Potassium 3.7 mMol/L (3.4-5.1); Sodium 134 mMol/L (136-145); Total Protein 8.1 gm/dL (5.7-8.2); Troponin I < 0.020 ng/mL (0.0-0.045); eGFR > 60 See Note
[2024-04-01 14:13] LABS: HCG,Qualitative Serum Negative; INR 1.3 (0.9-1.3); Partial Thromboplastin Time 27.9 Seconds (22.0-36.0); Prothrombin Time 13.6 Seconds (9.0-12.2)
[2024-04-01 16:10] VITALS: BP 100/66; PULSE 97; RESP 18; TEMP 36.4; O2SAT 97
[2024-04-01 17:02] VITALS: BP 102/73; PULSE 100; RESP 15; O2SAT 95
[2024-04-01 17:47] VITALS: BP 102/73; PULSE 89; RESP 16; TEMP 36.9; O2SAT 99
== END 2024-04-01 17:48 | disposition home or self-care (01) ==
PROVIDERS: Physician Assistant; Emergency Provider Emergency Medicine
DX: R07.89 Other chest pain (principal); F15.10 Other stimulant abuse, uncomplicated; Z87.74 Personal history of (corrected) congenital malformations of heart and circulatory system; Z79.82 Long term (current) use of aspirin; Z91.040 Latex allergy status
CPT/HCPCS: 36415; 71045; 80053; 80307; 83690; 83735; 83880; 84484; 84703; 85025; 85610; 85730; 93005; 99283

== ENCOUNTER 2024-04-04 00:41 | Emergency (ER) | payer SELFPAY ==
--- NOTE | 2024-04-04 00:49 | EDNOTE_ITS ---
ED Chest Pain RME/HPI General Chief Complaint: Chest Pain Stated Complaint: CHEST PAIN Time Seen by Provider: 04/04/24 00:45 Arrival date/time: 04/04/24 00:41 RME / HPI RME / HPI narrative: This section includes all my notes and documentations, including HPI, PE, and ED course. 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 Patient does not specify how long she's had her chest pain for, but currently rates her pain a 8 out of 10 in severity. She denies any cough, fever, chills or any other associated symptoms. Patient states she has been out of her blood thinner, but does not remember the name of it. No other complaints reported. ROS: All negative except as documented in HPI. Physical Exam: General: Alert and oriented. No acute distress when remaining still. Eyes: Conjunctivae and lids clear. ENT: No nasal congestion. Neck: Supple. Heart: RRR. Lungs: No respiratory distress. Good air movement. No rhonchi, wheezing, rales. Chest: Palpation of the sternum area reproduces her pain. Abdomen: Soft and nontender. Legs: No clubbing, cyanosis, edema. Skin: Warm and dry. Neuro: Alert and oriented X 3. I reviewed all diagnostic test results. My interpretation of the EKG is sinus rhythm no acute ST?T changes. Blood tests unremarkable, including negative troponin. At this point, diagnoses include chest wall pain. Recommended supportive care and more outpatient cardiac workup. Based on my best medical judgment, made decision no further evaluation or treatment indicated at this time. Patient understands and agrees to the discharge instructions customized and printed, see below. Discharge instructions from Dr. Scanlon: 1. After extensive evaluation, there is no life-threatening condition. Such as heart attack. 2. Your pain is originating from the chest wall and not from an internal organ. The chest wall has many joints and muscles between the ribs, so sprains and strains are common. 3. Apply ice or heat if helpful. Tylenol/ibuprofen as needed. 4. See a private doctor on 04/05/2024 for recheck. To make sure there is no serious underlying heart condition, ask to help you get more tests for your heart that cannot be done here in the ER. Such as Holter Monitor (cardiac monitoring at home from a day to even a month), heart stress test (on treadmill or with medication), echocardiogram (imaging of your heart structures), heart catherization (checking for blockages in your heart arteries), and a referral to see a Building Maintenance Engineer. 5. Seek immediate medical care with worsening or with any concerns. Juancho Scanlon MD Related Data Previous Rx's ?Medication ?Instructions ?Recorded ibuprofen 400 mg tablet 400 mg PO Q8H PRN pain #14 t abs 12/27/23 Allergies Allergy/AdvReac Type Severity Reaction Status Date / Time latex Allergy Verified 04/04/24 00:47 Review of Systems Review of Systems Systems Reviewed: All systems reviewed, normal except as documented ED Exam Narrative Physical exam: As noted in HPI. Course Quality Measures none Orders Category Date Time Status EKG (ED ONLY) *Do not use* NOW Care 04/04/24 00:51 Completed EKG (ED Only) Stat Exams 04/04/24 00:51 Draft BNP [B-Type Natriuretic Peptide] Stat Lab 04/04/24 01:02 Completed CBC Stat Lab 04/04/24 01:02 Completed CMP [Comprehensive Metabolic Panel] Stat Lab 04/04/24 01:02 Completed Magnesium Stat Lab 04/04/24 01:02 Completed TSH [Thyroid Stimulating Hormone] Stat Lab 04/04/24 01:02 Completed Troponin I Stat Lab 04/04/24 01:02 Completed Vital Signs Vital signs: Vital Signs Temperature 98.1 F 04/04/24 00:50 Respiratory Rate 18 04/04/24 00:50 Blood Pressure 104/66 04/04/24 00:50 Pulse Oximetry (%) 96 04/04/24 00:50 Oxygen Delivery Method Room Air 04/04/24 00:50 Chest Pain MDM Narrative MDM Narrative:: Scribe Attestation: 04/04/24 Imelda Schofield am scribing for and in the presence of Dr. Scanlon. Patient data External records reviewed:: [facility] previous records (Per chart review, patient was seen here on 04/01/24 for chest pain.) Clinical information provided by:: patient Social determinants that could affect healthcare access:: none Patient has the following chronic illnesses:: hypoplastic ventricular hypoplasia How is presenting disease/condition affected by chronic disease/condition?: uneffected by Evaluation data The following diagnostics were reviewed and interpreted by me:: lab results and EKG tracing(s) (My interpretation of the EKG is: Sinus rhythm (66 bpm) with no nspecific ST-T changes. Juancho Scanlon MD) Lab and/or radiology exams considered but not ordered:: none Interpretation Summary: Chest wall pain Medications / Prescriptions Medications or Prescriptions considered but not ordered:: none Medication administrations:: none Consultations Consultation(s) initiated? (list below): No Diagnosis Chest Pain Differential Diagnosis: stable angina, unstable angina pectoris, atypical chest pain, st elevation myocardial infarction and costochondritis Most likely diagnosis given after review of the tests above:: Chest wall pain Admission Indicated Admission indicated?: not indicated Explain why admission is indicated or not indicated:: No criteria for admission. Admission Request Was there a request for admission?: No Disposition Plan Disposition Plan: Discharge Discharge Attestation Discharge Attestation: The patient and all family members were given an opportunity to ask questions and understood the discharge instructions. Discharge instructions specifically effects, indications for sooner follow up or return to the emergency department, and the expected course of current diagnosis. Patient condition: Stable Discharge Plan Plan Patient Disposition: HOME (Self Care) Prescriptions/Referrals Prescriptions/Med Rec: No Action ibuprofen 400 mg tablet 400 mg PO Q8H PRN (Reason: pain) Qty: 14 0RF Problem List Clinical Impression: Chest pain Patient/Caregiver Discharge Instructions Discharge Activity: activity as tolerated Education Materials: ED Chest Pain, Uncertain Cause Additional Instructions: Discharge instructions from Dr. Scanlon: 1. After extensive evaluation, there is no life-threatening condition.? Such as heart attack. 2. Your pain is originating from the chest wall and not from an internal organ.? The chest wall has many joints and muscles between the ribs, so sprains and strains are common.?? 3. Apply ice or heat if helpful.? Tylenol/ibuprofen as needed. 4. See a private doctor on 04/05/2024 for recheck. To make sure there is no serious underlying heart condition, ask to help you get more tests for your heart that cannot be done here in the ER.? Such as Holter Monitor (cardiac monitoring at home from a day to even a month), heart stress test (on treadmill or with medication), echocardiogram (imaging of your heart structures), heart catherization (checking for blockages in your heart arteries), and a referral to see a Building Maintenance Engineer.? 5. Seek immediate medical care with worsening or with any concerns.?? Print Language: [place] Citizen Stand Alone Forms: [employer] Info., Patient Portal Info Letter
[2024-04-04 00:50] VITALS: BP 104/66; RESP 18; TEMP 36.7; O2SAT 96
--- NOTE | 2024-04-04 00:51 | EKG_ITS ---
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
[2024-04-04 01:08] VITALS: BMI 20.1
[2024-04-04 01:08] LABS: Basophils % (Auto) 0 % (0-2.5); Eosinophils # (Auto) 0.2 Thou/mm3 (0.0-0.5); Eosinophils % (Auto) 3 % (0-10); Hematocrit 40.4 % (36.0-46.0); Hemoglobin 13.7 g/dL (12.0-16.0); Immature Granulocytes % (Auto) 0 % (0-0); Immature Granulocytes Auto 0.01 Thou/mm3 (0.00-0.00); Lymphocytes # (Auto) 2.2 Thou/mm3 (1.0-5.0); Lymphocytes % (Auto) 40 % (10-50); Mean Corpuscular HGB Conc 33.9 g/dl (31.0-37.0); Mean Corpuscular Hemoglobin 30.6 pg (25.0-35.0); Mean Corpuscular Volume 90 fL (80-100); Monocytes # (Auto) 0.4 Thou/mm3 (0.0-0.8); Monocytes % (Auto) 8 % (0-12); Neutrophils # (Auto) 2.7 Thou/mm3 (1.8-7.7); Neutrophils % (Auto) 49 % (37-80); Nucleated Red Blood Cell % 0 /100 WBC (0); Platelet Count 156 Thou/mm3 (140-440); RDW Standard Deviation 42.7 fL (36.4-46.3); Red Blood Count 4.48 Miln/mm3 (4.00-5.20); White Blood Count 5.4 Thou/mm3 (4.5-11.0)
[2024-04-04 01:28] LABS: B-Type Natriuretic Peptide 35 pg/mL (0-100)
[2024-04-04 01:33] LABS: Alanine Aminotransferase 12 U/L (10-49); Albumin, Serum 4.5 gm/dL (3.5-5.0); Albumin/Globulin Ratio 1.6 (1.2-2.2); Alkaline Phosphatase 71 U/L (46-116); Anion Gap 6 (7-16); Aspartate Amino Transferase 21 U/L (0-34); BUN/Creatinine Ratio 19 Ratio (12-20); Bilirubin,Total 0.4 mg/dL (0.3-1.2); Blood Urea Nitrogen 17 mg/dL (9-23); Calcium 9.6 mg/dL (8.3-10.6); Calcium (Corrected) 9.6 mg/dL (8.5-10.1); Carbon Dioxide 26.1 mMol/L (20.0-31.0); Chloride 110 mMol/L (98-107); Creatinine (Component) 0.9 mg/dL (0.6-1.3); Estimated Creatinine Clearance 79.2 mL/min (>60); Globulin 2.9 gm/dL (2.3-3.5); Glucose 101 mg/dL (74-106); Osmolality,Calculated 284 (275-295); Sodium 142 mMol/L (136-145); Thyroid Stimulating Hormone 2.65 uIU/mL (0.55-4.78); Total Protein 7.4 gm/dL (5.7-8.2); Troponin I < 0.020 ng/mL (0.0-0.045); eGFR > 60 See Note
[2024-04-04 01:48] VITALS: RESP 18
== END 2024-04-04 01:48 | disposition home or self-care (01) ==
LOC: SERX 02:29
PROVIDERS: Emergency Provider Emergency Medicine
DX: R07.89 Other chest pain (principal); Q24.8 Other specified congenital malformations of heart; Z91.040 Latex allergy status
CPT/HCPCS: 36415; 80053; 83735; 83880; 84443; 84484; 85025; 93005; 99283

== ENCOUNTER 2024-04-23 19:14 | Emergency (ER) | payer SELFPAY ==
[2024-04-23 19:15] VITALS: BMI 23.0
[2024-04-23 19:52] VITALS: BP 135/93; PULSE 95; RESP 16; TEMP 36.7; O2SAT 97
--- NOTE | 2024-04-23 20:07 | PD.EDHA ---
ED Headache RME/HPI General Chief Complaint: Headache Stated Complaint: HEADACHE, NAUSEA Time Seen by Provider: 04/23/24 20:03 Arrival date/time: 04/23/24 19:14 18F with history of psych and migraines presents to ED with several days of ORTIZ, N/V, and some light sensitivity. Limitations: no limitations Related Data Previous Rx's ?Medication ?Instructions ?Recorded ibuprofen 400 mg tablet 400 mg PO Q8H PRN pain #14 tabs 12/27/23 Allergies Allergy/AdvReac Type Severity Reaction Status Date / Time latex Allergy Verified 04/04/24 00:47 Review of Systems Review of Systems Systems Reviewed: All systems reviewed, normal except as documented Constitutional Constitutional: Reports system reviewed and no additional complaints, except as documented, Reports as per HPI, Denies fever(s) and Reports headache(s) ENT Ears, Nose, Mouth, and Throat: Denies disequilibrium and Reports headache(s) Cardiovascular Cardiovascular: Reports system reviewed and no additional complaints, except as documented, Denies chest pain and Denies dyspnea Respiratory Respiratory: Reports system reviewed and no additional complaints, except as documented, Denies cough and Denies dyspnea Gastrointestinal Gastrointestinal: Reports system reviewed and no additional complaints, except as documented, Reports as per HPI, Denies abdominal pain, Reports nausea and Reports vomiting Neurologic Neurologic: Reports system reviewed and no additional complaints, except as documented, Denies confusion, Denies disequilibrium and Reports headache(s) Psychiatric Psychiatric: Denies confusion Past Medical History Past Medical History CARDIAC: Positive Congenital Heart Disease; Negative Congestive Heart Failure RESPIRATORY: Negative Chronic Obstructive Pulmonary Disease (COPD) GENITOURINARY: Negative Renal Disease ENDOCRINE: Negative Diabetes Mellitus Type 1 or Diabetes Mellitus Type 2 Surgical History SURGICAL: Positive Cardiac Surgery Social History SMOKING STATUS: Current every day smoker ED Exam General Limitations: Present no limitations General appearance: Present alert and in no apparent distress Head Head exam: Present atraumatic Eye Eye exam: Present normal appearance, PERRL and EOMI ENT ENT exam: Present normal exam, normal oropharynx and mucous membranes moist Neck Neck exam: Present normal inspection, full ROM and trachea midline Chest Chest inspection: Present normal inspection and symmetric chest wall rise Respiratory Respiratory exam: Present normal lung sounds bilaterally Cardiovascular Cardiovascular exam: Present regular rate, normal rhythm and normal heart sounds Abdominal Exam Abdominal exam: Present soft and normal bowel sounds Extremities Exam Extremities exam: Present normal inspection and full ROM Back Exam Back exam: Present normal inspection and full ROM Neurological Exam Neurological exam: Present alert, oriented X3 and CN II-XII intact Psychiatric Psychiatric exam: Present normal affect and normal mood Skin Skin exam: Present warm, dry, intact and normal color Course Quality Measures none Orders Category Date Time Status Metoclopramide [Reglan] Med 04/23/24 20:03 Discontinued 10 mg PO X1 ONE Naproxen [Naprosyn] Med 04/23/24 20:07 Discontinued 500 mg PO X1 ONE SUMAtriptan INJ [Imitrex Inj] Med 04/23/24 20:03 Discontinued 6 mg SC X1 ONE Vital Signs Vital signs: Vital Signs Temperature 98.1 F 04/23/24 19:52 Pulse Rate 95 04/23/24 19:52 Respiratory Rate 16 04/23/24 19:52 Blood Pressure 135/93 H 04/23/24 19:52 Pulse Oximetry (%) 97 04/23/24 19:52 Oxygen Delivery Method Room Air 04/23/24 19:52 O2 at 97% on RA and WNLs Headache MDM Narrative MDM Narrative:: 18F with history of psych and migraines presents to ED with several days of ORTIZ, N/V, and some light sensitivity. Physical exam reveals normal pupil response and EOM. ENT and lungs clear. Patient is afebrile, calm, and alert. Meds improved ORTIZ. Patient data External records reviewed:: [facility] previous records Clinical information provided by:: patient Social determinants that could affect healthcare access:: mental health Patient has the following chronic illnesses:: psych and migraines How is presenting disease/condition affected by chronic disease/condition?: exacerbated by Evaluation data The following diagnostics were reviewed and interpreted by me:: other (specify) (none) Lab and/or radiology exams considered but not ordered:: not ordered Interpretation Summary: n/a Medications / Prescriptions Medications or Prescriptions considered but not ordered:: ordered Medication administrations:: Medication Administration History Discontinued Medications Metoclopramide HCl (Metoclopramide 5 Mg Tablet) 10 mg PO X1 ONE Stop: 04/23/24 20:04 Last Admin: 04/23/24 20:11 Dose: 10 mg Documented By: ILDEFONSO Naproxen (Naproxen 250 Mg Tablet) 500 mg PO X1 ONE Stop: 04/23/24 20:08 Last Admin: 04/23/24 20:11 Dose: 500 mg Documented By: ILDEFONSO Sumatriptan Succinate (Sumatriptan Inj 6 Mg/0.5 Ml Vial) 6 mg SC X1 ONE Stop: 04/23/24 20:04 Last Admin: 04/23/24 20:12 Dose: Not Given Documented By: ILDEFONSO Non-Admin Reason: Cancelled by Provider above Consultations Consultation(s) initiated? (list below): No Diagnosis Differential diagnosis headache: migraine, tension headache, subarachnoid hemorrhage, headache, meningitis, sinusitis, postconcussion syndrome and other (URI) Most likely diagnosis given after review of the tests above:: ORTIZ Admission Indicated Admission indicated?: not indicated Admission Request Was there a request for admission?: No Disposition Plan Disposition Plan: Discharge Discharge Attestation Discharge Attestation: The patient and all family members were given an opportunity to ask questions and understood the discharge instructions. Discharge instructions specifically effects, indications for sooner follow up or return to the emergency department, and the expected course of current diagnosis. Patient condition: Stable Discharge Plan Plan Patient Disposition: HOME (Self Care) Disposition Comment: Stable Prescriptions/Referrals Prescriptions/Med Rec: No Action ibuprofen 400 mg tablet 400 mg PO Q8H PRN (Reason: pain) Qty: 14 0RF Problem List Clinical Impression: Headache Patient/Caregiver Discharge Instructions Education Materials: Self-Care for Headaches Additional Instructions: Please follow-up with PCP within 24-48 hours and return immediately if symptoms worsen. Ibuprofen/Tylenol can be used simultaneously for greater fever/pain control. Print Language: Sinhala Stand Alone Forms: Patient Portal Info Letter PATRICIA/BREANN Supervising Physician KHOA Supervising Physician: Dr. Hendrix
[2024-04-23] MEDS: NAPROXEN 250 MG TABLET 500 MG PO (20:11)
[2024-04-23] MEDS: METOCLOPRAMIDE 5 MG TABLET 10 MG PO (20:11)
== END 2024-04-23 20:51 | disposition home or self-care (01) ==
LOC: SERX 21:08
PROVIDERS: Emergency Provider Emergency Medicine
DX: R51.9 Headache, unspecified (principal)
CPT/HCPCS: 99282; A9270

== ENCOUNTER 2024-06-15 19:41 | Emergency (ER) | payer MEDICAID, SELFPAY ==
--- NOTE | 2024-06-15 19:56 | PC.NURSE ---
PT BROUGHT UP TO [facility] BY EMS. WHEN I ATTEMPTED TO TRIAGE STTES SHE JUST NEEDED A RIDE HERE FROM [place], THEN WALKED OUT.
--- NOTE | 2024-06-15 20:19 | PD.EDRME ---
Rapid Medical Screening Exam RME Arrival date/time: 06/15/24 19:41 Chief Complaint: Anxiety Time Seen by Provider: 06/15/24 20:02
--- NOTE | 2024-06-15 20:21 | PD.EDADDENDU ---
Emergency Room Addendum Addendum Narrative: This patient left without being seen. I did not do history and physical exam on this patient.
== END 2024-06-15 22:20 | disposition left against medical advice (07) ==
PROVIDERS: Emergency Provider Emergency Medicine
DX: Z53.21 Procedure and treatment not carried out due to patient leaving prior to being seen by health care provider (principal)